=== PATIENT | female | born 1965 | race Caucasian/White ===

== ENCOUNTER → 2016-11-08 | Outpatient (CLI) | payer BC ==
--- NOTE | ~2016-11-08 | CT57 ---
[facility] A Service of [facility] RADIOLOGY TEXT RESULTS PATIENT: ANJELICA TY LOCATION: [facility] : 61 UNIT #: [id number] AGE: [address]: Soniya Corrales MD SEX: F ORDER DR: [id number] [address] [address] [id number] O MR#: [id number] [facility] #: [id number] NAME: ANJELICA TY : 1965 SEX: F STUDY DATE/TIME: 11/08/2016 10:07 UNIT: [facility] ROOM: STUDY DESCRIPTION: CT Chest Wo Cont Attending Physician: Soniya Corrales M.D. Referring Physician: Soniya Corrales M.D. Ordering Physician: Soniya Corrales M.D. Primary Care Physician: Soniya Corrales M.D. MEDICAL IMAGING REPORT This report is preliminary unless electronic signature is present. EXAM CT of the chest without contrast INDICATIONS Cough for 6 months. Patient is a current smoker. She had a chest radiograph performed June 28, 2016 which did not show any acute abnormalities. TECHNIQUE Axial CT images were obtained from the dome of the diaphragm through the symphysis pubis. No intravenous contrast material was administered. This CT exam was performed with one or more of the following radiation dose reduction techniques: automatic control, adjustment of mA and/or kV according to patient size, and iterative reconstruction. FINDINGS This patient has a 6 mm nodule within the right middle lobe which is indeterminate. Patient does have background emphysematous changes short-term CT followup in 6 months is recommended. The thyroid gland trachea and esophagus appear unremarkable. There is no pleural or pericardial effusion. Mediastinal lymph nodes do not appear pathologically enlarged. Thoracic aorta measures within normal size limits. No acute abnormalities are seen within the upper abdomen. Review of bony windows does not demonstrate any aggressive osseous abnormalities. IMPRESSION 6 mm nodule identified within the right middle lobe. This really can be a benign finding, however patient does have background emphysematous changes short-term CT followup in 6 months is recommended to document stability. No acute infiltrates are seen. [facility] A Service of [facility] RADIOLOGY TEXT RESULTS PATIENT: ANJELICA TY LOCATION: [facility] : 61 UNIT #: [id number] AGE: [address]: Soniya Corrales MD SEX: F ORDER DR: Dictated by... Samara Plummer M.D. THIS IS AN ELECTRONICALLY VERIFIED REPORT Samara Plummer M.D. at 11/10/2016 1:05 PM AFF/rnr TD: 11/10/2016 03:39 JOB #: [id number] MEDICAL IMAGING REPORT Page 1 of 1
== END | disposition home or self-care (01) ==
LOC: SCT 09:57
DX: R05 Cough (principal); F17.200 Nicotine dependence, unspecified, uncomplicated; R91.1 Solitary pulmonary nodule
CPT/HCPCS: 71250

== ENCOUNTER → 2016-11-15 | Outpatient (CLI) | payer BC ==
--- NOTE | ~2016-11-15 | MY30 ---
[facility] A Service [facility] RADIOLOGY TEXT RESULTS PATIENT: ANJELICA TY LOCATION: [facility] : 61 UNIT #: [id number] AGE: [address]: Soniya Corrales MD SEX: F ORDER DR: [id number] [place] [id number] O MR#: [id number] Acc #: [id number] NAME: ANJELICA TY : 1965 SEX: F STUDY DATE/TIME: 11/15/2016 13:22 UNIT: [facility] ROOM: STUDY DESCRIPTION: MY SCREEN EDDIE BILAT DIGITAL Attending Physician: Soniya Corrales M.D. Referring Physician: Soniya Corrales M.D. Ordering Physician: Soniya Corrales M.D. Primary Care Physician: Soniya Corrales M.D. MEDICAL IMAGING REPORT This report is preliminary unless electronic signature is present. EXAM Digital screening mammogram 11/15/2016 HISTORY 51-year-old woman positive family history, maternal grandmother age 55. Annual screen. COMPARISON Outside mammograms 12/27/2009, 04/09/2011, 10/20/2014. FINDINGS Digital imaging of each breast was completed utilizing screening protocol. Review includes FDA-approved CAD device. Breast parenchyma is heterogeneous with subareolar duct prominence noted bilaterally. There is no breast mass. I see no interval occurring microcalcifications and no suspicious architectural deformity. IMPRESSION Negative mammogram. Annual screening recommended. Patients over the age of 40 are entered into a reminder system with target due date for the next mammogram. A result letter will also be sent to the patient. BIRADS: 1 Negative Dictated by... Haider Chun M.D. THIS IS AN ELECTRONICALLY VERIFIED REPORT Haider Chun M.D. at 11/19/2016 1:04 PM [facility] A Service [facility] RADIOLOGY TEXT RESULTS PATIENT: ANJELICA TY LOCATION: [facility] : 61 UNIT #: [id number] AGE: [address]: Soniya Corrales MD SEX: F ORDER DR: LD/van TD: 11/19/2016 08:23 JOB #: [id number] MEDICAL IMAGING REPORT Page 1 of 1
== END | disposition home or self-care (01) ==
LOC: CWCC 12:45 → SMAM 12:46 → CWCC 13:00
DX: Z12.31 Encounter for screening mammogram for malignant neoplasm of breast (principal); Z80.3 Family history of malignant neoplasm of breast
CPT/HCPCS: G0202